=== PATIENT | female | born 1945 | race Caucasian/White ===

== ENCOUNTER → 2016-11-19 | Outpatient (REF) | payer MEDICARE, BC ==
[~2016-11-19] MED LIST: ALBU17IN INH; ATOR1TAB21 PO; CHIL1CHW5 PO; CLOP75TA2 PO; HYDR200T3 PO; IBUP80TA PO; NICO21PAT TD; QUIN200T PO
[2016-11-19 11:16] LABS: ALBUMIN 3.6 GM/DL (3.2-5.2); ALBUMIN/GLOBULIN RATIO 1.03 (1.00-1.93); ALKALINE PHOSPHATASE 105 U/L (45-117); ALT/SGPT 17 U/L (12-78); ANION GAP 6 MEQ/L (8-16); AST/SGOT 20 U/L (15-37); BILIRUBIN,TOTAL 0.3 MG/DL (0.2-1.0); BLOOD UREA NITROGEN 16 MG/DL (7-18); CARBON DIOXIDE LEVEL 31 MEQ/L (21-32); CHLORIDE LEVEL 105 MEQ/L (98-107); CHOLESTEROL LEVEL 264 MG/DL (<200); CREATININE FOR GFR 0.62 MG/DL (0.55-1.02); GLOMERULAR FILTRATION RATE > 60.0 (>45); GLUCOSE, FASTING 96 MG/DL (80-110); POTASSIUM SERUM 4.4 MEQ/L (3.5-5.1); SODIUM LEVEL 142 MEQ/L (136-145); TOTAL PROTEIN 7.1 GM/DL (6.4-8.2); TRIGLYCERIDES LEVEL 190 MG/DL (<150)
== END ==
LOC: M SFHCCLAY 08:07
PROVIDERS: ATTEND Internal Medicine
DX: E78.00 Pure hypercholesterolemia, unspecified (principal)

== ENCOUNTER → 2016-12-14 | Outpatient (CLI) | payer MEDICARE, BC ==
--- NOTE | 2016-12-14 13:24 | REPMRS ---
Patient History The patient states she has not had a clinical breast exam in over a year. Patient is postmenopausal. Family history of prostate cancer in paternal grandfather at age 50 or over. Digital Woman Screen Mammo: December 14, 2016 - Exam #: [id number] Bilateral CC and MLO view(s) were taken. Technologist: Amanda Evans Technologist FINDINGS: There are scattered fibroglandular densities. There has been no change in the appearance of the mammogram from the prior studies. There is a mild amount of residual fibroglandular tissue which is fairly symmetric. There is no interval development of dominant mass, architectural distortion, or clustered microcalcification suggestive of malignancy. ASSESSMENT: BI-RADS/ACR category 1 mammogram. Negative. Recommendation Routine screening mammogram in 1 year (for women over age 40). This mammogram was interpreted with the aid of an FDA-approved computer-aided dectection system. Electronically Signed By: Kenneth Bridges MD 12/14/16 1860
--- NOTE | 2016-12-16 14:00 | DEXA ---
AP SPINE L1 - L4 1.625 3.5 5.0 LT FEMUR TOTAL 0.927 -0.6 0.7 RT FEMUR TOTAL 0.917 -0.7 0.6 TOTAL BODY TOTAL OTHER DUAL FEMUR FRAX* ASSESSMENT Risk factors: Rheumatoid arthritis, tobacco user. 10 year probability of fracture Major osteoporotic fracture 12.1 % Hip fracture 2.6 % COMMENTS: Normal bone densitometry of the spine. There is low bone density of the hips. The density of the spine has increased 8.1% since 03/24/2006. The density of the left hip has decreased 10.2% since 03/24/2006. The density of the right hip has decreased 10.2% since 03/24/2006. The increased density of the spine does represent a significant change. The decreased density of the left hip does represent a significant change. The decreased density of the right hip does represent a significant change. FOLLOW-UP: Recommendation for the next bone density exam: 2 years. FIDELINA
== END ==
LOC: M WHC 11:02
PROVIDERS: ATTEND Internal Medicine
DX: Z12.31 Encounter for screening mammogram for malignant neoplasm of breast (principal); M06.9 Rheumatoid arthritis, unspecified; Z78.0 Asymptomatic menopausal state
CPT/HCPCS: 77080; G0202

== ENCOUNTER 2017-01-18 11:02 | Observation (INO) | payer MEDICARE, BC ==
[~2017-01-18] VITALS: Ht 152.4 cm; Wt 67.9 kg
[~2017-01-18 11:02] MED LIST changes: +ATORVASTATIN 20 MG TAB PO SCH; -CHIL1CHW5 PO; +CHIL81CH2 PO
[2017-01-18] MEDS ORDERED: NS 1,000 ML IV SCH (11:24)
[2017-01-18 11:34] LABS: BASO % 0.6 % (0.0-1.0); EOS # 0.1 K/mm3 (0.0-0.50); EOS % 0.9 % (0.0-3.0); LARGE UNSTAINED CELL # 0.1 K/mm3 (0.0-0.4); LARGE UNSTAINED CELL % 1.5 % (0.0-4.0); LYMPH # 1.8 K/mm3 (1.5-4.5); LYMPH % 22.5 % (24.0-44.0); MEAN CORPUSCULAR HEMOGLOBIN 34.9 pg (27.0-33.0); MEAN CORPUSCULAR HGB CONC 32.8 g/dl (32.0-36.5); MEAN CORPUSCULAR VOLUME 106.6 fl (80.0-96.0); MONO # 0.5 K/mm3 (0.0-0.8); MONO % 6.2 % (0.0-5.0); NEUTROPHILS % 68.3 % (36.0-66.0); PLATELET COUNT, AUTOMATED 275 k/mm3 (150-450); RED CELL DISTRIBUTION WIDTH 14.5 % (11.5-14.5); WHITE BLOOD COUNT 7.4 K/mm3 (4.0-10.0)
--- NOTE | 2017-01-18 11:52 | REP ---
Clinical: Cerebrovascular accident . Comparison: 08/15/2015 . Technique: PA and lateral. Findings: The mediastinum and cardiac silhouette are normal. The lung gruber are clear and without acute consolidation, effusion, or pneumothorax. The skeletal structures are intact and normal. Impression: 1. No acute cardiopulmonary process. Signed by King Blood MD 01/18/2017 11:44 A
--- NOTE | 2017-01-18 11:54 | REP ---
Clinical: Cerebrovascular accident. Comparison: 08/15/2015 . Findings: Age-related atrophy and microvascular ischemic changes are appreciated. The ventricles and sulci are symmetric. Encephalomalacia consistent with old left posterior parietal infarct is unchanged. Bridges-white differentiation is otherwise maintained. There is no evidence for acute intracranial hemorrhage, mass/mass effect, pathology or infarction. No extra-axial fluid collection. Calvarium is intact. Paranasal sinuses and mastoid air cells are clear. Impression: Age related atrophy and microvascular ischemic changes. Old left posterior parietal infarct. No acute intracranial hemorrhage, infarction, or mass/mass effect. Signed by King Blood MD 01/18/2017 11:46 A
[2017-01-18 12:12] LABS: INR 0.95
[2017-01-18] MEDS ORDERED: METH2.5TA PO (12:14)
[2017-01-18] MEDS ORDERED: ASPI1TAB PO (12:14)
[2017-01-18] MEDS ORDERED: ALBU17IN INH (12:14)
[2017-01-18 12:17] LABS: ANION GAP 7 MEQ/L (8-16); BLOOD UREA NITROGEN 17 MG/DL (7-18); CARBON DIOXIDE LEVEL 29 MEQ/L (21-32); CHLORIDE LEVEL 105 MEQ/L (98-107); CREATININE FOR GFR 0.75 MG/DL (0.55-1.02); GLOMERULAR FILTRATION RATE > 60.0 (>45); GLUCOSE, FASTING 119 MG/DL (80-110); POTASSIUM SERUM 3.9 MEQ/L (3.5-5.1); SODIUM LEVEL 141 MEQ/L (136-145)
[2017-01-18] MEDS ORDERED: ACETAMINOPHEN TAB 650MG DOSE (2X325MG) PO ONE (12:45)
--- NOTE | 2017-01-18 13:50 | REP ---
Clinical: Transient ischemic attack. Visual disturbances. Technique: Standard noncontrast MRI sequencing of the brain. Comparison: 08/06/2015. Findings: Punctate scattered high signal intensity foci on T2-weighted sequences along with periventricular high signal intensity is most compatible with microvascular ischemic changes. Area of encephalomalacia involving the left parieto-occipital lobe is compatible with old infarction and remains stable. No acute intracranial hemorrhage, mass or mass effect appreciated. No evidence for acute infarction. No extra-axial collection. Sinuses are clear. Orbits are symmetric and normal. Impression: 1. Chronic changes including microvascular ischemic changes and old left parieto-occipital infarction. 2. No acute intracranial process identified. Signed by King Blood MD 01/18/2017 01:41 P
--- NOTE | 2017-01-18 14:19 | REP ---
Clinical: Transient ischemic attack - visual disturbances. Comparison: 06/07/2015. Technique: Axial 3-D [id number] noncontrast source images with 3-D multiplanar re-formations. Findings: Vasculature to the bilateral hemispheres appears symmetric and normal without areas of attenuation to suggest occlusion or stenosis. No evidence for arteriovenous malformation or aneurysm. No obvious abnormality. Impression: Normal MRA of the brain. Signed by King Blood MD 01/18/2017 02:11 P
[2017-01-18] MEDS ORDERED: ACETAMINOPHEN TAB 650MG DOSE (2X325MG) PO PRN (14:45)
[2017-01-18] MEDS ORDERED: ALBUTEROL 90 MCG/ACT 8GM HFA INHALER INH PRN (14:45)
[2017-01-18] MEDS ORDERED: ONDANSETRON 4MG/2ML VIAL (J2405) IV PRN (14:45)
--- NOTE | 2017-01-18 14:53 | ECGEPIP ---
Stationary ECG Study [facility] - ED Test Date: 2017-01-18 Pat Name: ANDREZ MELCHOR Department: Room: - Gender: F Arc[place] Technician: JT : 1945 Requested By: Katerina Hung Order Number: [id number] Reading MD: Juarez Mohr Measurements Intervals [place] Rate: 66 P: 71 DE: 140 QRS: 8 QRSD: 89 T: 30 QT: 402 QTc: 423 Interpretive Statements SINUS RHYTHM WITH SINUS ARRHYTHMIA POSSIBLE LAE Electronically Signed On 01-18-2017 14:53:28 EDT by Juarez Mohr
[2017-01-18 14:55] LABS: CHOLESTEROL LEVEL 222 MG/DL (<200); TRIGLYCERIDES LEVEL 150 MG/DL (<150)
--- NOTE | 2017-01-18 15:37 | REP ---
Clinical: Transient ischemic attack. Technique: Bridges scale and color Doppler evaluation using linear high frequency transducer Findings: Two-dimensional bridges scale and color images demonstrate smooth intimal thickening and small amounts of mixed atheromatous plaquing in the carotid bulbs and proximal internal carotid arteries. Normal laminar flow and no appreciable narrowing noted. Color Doppler interrogation demonstrates normal arterial wave patterns and velocities with no significant spectral broadening. Normal flow direction is appreciated in the bilateral vertebral arteries. RIGHT (cm/s) LEFT (cm/s) ICA peak systolic velocity 83.6 94.7 ICA diastolic velocity 30.2 41.7 ECA peak systolic velocity 80.4 114.4 CCA peak systolic velocity 77.2 90.0 ICA/CCA ratio 1.08 1.05 Impression: No hemodynamically significant areas of narrowing or stenosis appreciated. Based on set standards narrowing falls within the normal/less than 50% range. Signed by King Blood MD 01/18/2017 03:29 P
[2017-01-18] MEDS ORDERED: NICOTINE 7 MG/24 HR TRANSDERMAL TD PRN (17:15)
[2017-01-18 17:53] VITALS: BP 151/66
[2017-01-18] MEDS: ASPIRIN 325 MG TAB PO SCH (18:10)
[2017-01-18] MEDS: ENOXAPARIN 40 MG/0.4 ML SYRINGE (J1650) SC SCH (18:11)
[2017-01-18 20:03] VITALS: BP 96/60
[2017-01-18] MEDS ORDERED: SIMVASTATIN 10 MG TAB PO SCH (21:00)
[2017-01-19 00:07] VITALS: BP 107/53
[2017-01-19 04:12] LABS: BASO % 0.6 % (0.0-1.0); EOS # 0.1 K/mm3 (0.0-0.50); EOS % 2.8 % (0.0-3.0); LARGE UNSTAINED CELL # 0.1 K/mm3 (0.0-0.4); LARGE UNSTAINED CELL % 2.7 % (0.0-4.0); LYMPH % 35.2 % (24.0-44.0); MEAN CORPUSCULAR HEMOGLOBIN 35.8 pg (27.0-33.0); MEAN CORPUSCULAR HGB CONC 33.8 g/dl (32.0-36.5); MEAN CORPUSCULAR VOLUME 105.9 fl (80.0-96.0); MONO # 0.4 K/mm3 (0.0-0.8); MONO % 7.2 % (0.0-5.0); NEUTROPHILS # 2.7 K/mm3 (1.8-7.7); NEUTROPHILS % 51.5 % (36.0-66.0); PLATELET COUNT, AUTOMATED 244 k/mm3 (150-450); RED CELL DISTRIBUTION WIDTH 14.6 % (11.5-14.5); WHITE BLOOD COUNT 5.2 K/mm3 (4.0-10.0)
[2017-01-19 04:13] VITALS: BP 110/53
[2017-01-19 04:33] LABS: ALBUMIN 2.9 GM/DL (3.2-5.2); ALBUMIN/GLOBULIN RATIO 0.97 (1.00-1.93); ALKALINE PHOSPHATASE 102 U/L (45-117); ALT/SGPT 17 U/L (12-78); ANION GAP 3 MEQ/L (8-16); AST/SGOT 13 U/L (15-37); BILIRUBIN,TOTAL 0.2 MG/DL (0.2-1.0); BLOOD UREA NITROGEN 15 MG/DL (7-18); CALCIUM LEVEL 8.2 MG/DL (8.8-10.2); CARBON DIOXIDE LEVEL 30 MEQ/L (21-32); CHLORIDE LEVEL 109 MEQ/L (98-107); CREATININE FOR GFR 0.67 MG/DL (0.55-1.02); GLOMERULAR FILTRATION RATE > 60.0 (>45); GLUCOSE, FASTING 101 MG/DL (80-110); MAGNESIUM LEVEL 2.1 MG/DL (1.8-2.4); POTASSIUM SERUM 4.1 MEQ/L (3.5-5.1); SODIUM LEVEL 142 MEQ/L (136-145); TOTAL PROTEIN 5.9 GM/DL (6.4-8.2)
[2017-01-19 08:00] VITALS: BP 130/62
[2017-01-19] MEDS: ASPIRIN 325 MG TAB PO SCH (08:09)
[2017-01-19] MEDS: ENOXAPARIN 40 MG/0.4 ML SYRINGE (J1650) SC SCH (08:10)
--- NOTE | 2017-01-19 08:58 | HPE ---
DATE OF ADMISSION: 01/18/2017 PRIMARY CARE PHYSICIAN: Dr. Schneider CANDY CUTTER MACHINE: Dr. King from [facility] NEUROLOGIST: Dr. Javed CHIEF COMPLAINT: Incoordination and difficulty with vision on the left eye. HISTORY OF PRESENT ILLNESS: Ms. Farah is a 71-year-old female with multiple past medical history who presented to emergency room (ER) due to experiencing inability with coordination as well as lightheadedness, dizziness, and left eye vision changes this morning. Patient expressed that she woke up at 4 o'clock. She had breakfast around 7, and she had methotrexate with her breakfast, which she is taking weekly. This is her 7th week since the therapy has been started for rheumatoid arthritis. Patient expressed that 1 hour after breakfast she started noticing a halo of bright light in the center of her vision. She could not see, and she had blurry vision in the middle of the halo; however, she could see from surrounding area. She also had normal vision on the right eye. Patient also expressed that she felt mild headache on the left temporal and anterior frontal area of her head. She also felt lightheaded and dizzy. Patient expressed that the vision abnormality stayed for a total of 10 minutes, and her dizziness as well as off balance stayed for 1 hour. Patient has history of left occipital and parietal acute ischemic stroke, which happened in May 2015, with the residual vision loss. Patient expressed that the symptoms that she was experiencing were close to her symptoms that she was experiencing 2 years ago; therefore, patient came to the ER. Also, she was advised by Dr. Javed to come to the ER if she started noticing similar symptoms. At the time of interview, patient expressed that she believes that she is at her baseline; however, she feels mildly off balance at present; however, she has not been ambulated since coming to the hospital. Patient denies seizure-type activities or losing consciousness. Patient also denies losing bowel or bladder control, dysarthria. Patient had mild problem with swallowing; however, patient expressed that at this time she does not feel like is having problem with swallowing. Also, patient is a current smoker, and she has been smoking for 50+ years. According to her, patient also had carotid endarterectomy on the left side due to 90% occlusion. Patient also has occlusions on the right carotid artery; however, it is less than 50%. The carotid endarterectomy was done in [place]. PAST MEDICAL HISTORY: 1. 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 2. Stress and adjustment reaction. 3. CVA due to thrombosis of the cerebral artery. PAST SURGICAL HISTORY: 1. section 09/29/1966. 2. Cervical biopsy, 1969. 3. section 03/06/1970. 4. Cystoscopy, 1970. 5. Urethral stricture repair. 6. Colonoscopy August 2007. 7. Left carotid endarterectomy, 08/19/2015. FAMILY HISTORY: Patient's father at age 49 due to pulmonary embolism (PE). Patient's mother due to dementia at old age. Patient's sister has multiple medical issues. Patient has two brothers who are living. Both have hypertension and diabetes. Patient has two sons. One of his sons had cardiac bypass surgery. Other son has progressive neurological disease from of unknown etiology, and he is institutionalized. SOCIAL HISTORY: Patient has a history of 50 years of two packs or more smoking per day; however, since 2 years ago she has cut down on her smoking to about half a pack a day. Patient expressed drinks alcohol occasionally. Patient denies illicit drug use. Patient has not traveled outside of the [place]. Patient lives alone and has four cats. HOME MEDICATIONS: - Ventolin HFA two puff inhaler every 4 hours as needed shortness of breath - aspirin 81 - methotrexate 17.5 mg by mouth every week on Tuesdays ALLERGIES: MEPERIDINE, OXACILLIN, SULFA ANTIBIOTICS. REVIEW OF SYSTEMS: GENERAL: Patient denies fevers, chills, night sweats, weight loss, weight gain. HEENT: Patient has lightheadedness, vision changes; however, patient denies hearing changes. Patient has lightheadedness and dizziness. Patient denies problem with chewing food or sinusitis. NECK: Patient denies lumps, bumps, or decreased range of motion of her neck. HEART: Patient denies palpitations, racing or skipping heartbeat, chest pain. LUNGS: Patient denies shortness of breath, coughing. NEUROLOGIC: Patient has a history of CVA; however, patient denies history of seizure. PHYSICAL EXAMINATION: VITAL SIGNS: Temperature 97.7, pulse 78, respiratory rate 18, blood pressure 169/72, pulse oximetry 97 on room air. GENERAL APPEARANCE: Patient was lying in bed in no acute distress. Patient was awake, alert, and oriented to time, place, and person. HEENT: Normocephalic, atraumatic. Pupils are equal and reactive to light. Oral mucosa is moist. NECK: Soft, supple. No lymphadenopathy. No thyromegaly. No jugular venous distention (JVD). HEART: Regular rate and rhythm. Normal S1, S2. ABDOMEN: Soft, nontender. Positive bowel sounds in all quadrants. LUNGS: Patient has scattered rhonchi at the base of the lung. Good air movement. EXTREMITIES: No lower extremity edema. +2 pulses in both lower extremities. Patient has normal range of motion, both upper and lower extremities. Patient has normal sensation in both lower extremities. NEUROLOGIC: Cranial nerves II-XII were intact. No focal deficiencies. Tongue and uvula are midline. Patient has normal vision field in both left and right. LABORATORY DATA: White blood cells 7.4, red blood cells 4.33, hemoglobin 15.1, hematocrit 46.1, MCV 106.6, MCH 34.9, MCHC 32.8, RDW 14.5, platelet count 275, neutrophil percentage 68.3, lymphocyte percentage 22.5, monocyte percentage 6.2, eosinophil percentage 0.9, basophil percentage 0.6, leukocyte percentage 1.5. Sodium 141, potassium 3.9, chloride 105, carbon dioxide 29, anion gap 7, BUN 17, creatinine 0.75, glomerular filtration rate more than 60, fasting glucose 119, calcium 9. Total creatine kinase 101, CK-MB 2.3, CK-MB relative index 2.27. Troponin I less than 0.02. Triglyceride 150, total cholesterol 222, LDL cholesterol 152, non-LDL 182, total HDL 40, cholesterol/HDL ratio 5.50. IMAGING TECHNIQUE: CT of the head shows age-related atrophy and microvascular ischemic changes, old left posterior parietal infarct. No acute intracranial hemorrhage, infarct, mass , or mass effect. Chest x-ray shows no acute cardiopulmonary process. MRA of the brain without contrast indicated normal. MRI of the brain without contrast shows chronic changes, including microvascular ischemic changes and the left old parietal occipital infarct. No acute intracranial process identified. ASSESSMENT AND PLAN: 1. Incoordination with difficulty with vision on the left side. This is possibly secondary to transient ischemic attacks (TIA) versus ocular migraine and migraine with visual aura. MRI, MRA, and CT of the head were negative for new pathology. I have ordered carotid ultrasound. Result is pending at this time; however, according to the patient she had carotid endarterectomy on the left due to 90% occlusion; however, the right carotid is less than 50%, and this was done in [place], and patient had the carotid ultrasound done at the vascular surgeon's office; however, I do not have a copy of the result. At this time, I have spoken with Dr. Javed, and I have started patient on aspirin 325 mg by mouth daily. Also, we have started patient on Lipitor. Patient refusing high-intensity statin; however, patient agreed to be started on Lipitor 40 mg by mouth daily. Also we will continue patient with neurologic checks every 4 hours. Patient will be admitted to the progressive care unit (PCU). EKG did not show any atrial fibrillation; however, we have ordered echocardiogram. Result is pending at this time. Also, the first of the cardiac markers were negative. We will repeat the cardiac markers for two more sets, and the result is pending. Also, I have ordered a lipid panel, and the result is pending at this time. 2. Hyperlipidemia. We have started patient on statin. Also, we will continue patient on low-fat, low-cholesterol diet. 3. Rheumatoid arthritis. Patient is on methotrexate, which she received 17.5 mg by mouth weekly on Tuesdays. Patient received her dose today before coming to the hospital. The next dose is due next week on Tuesday. At this time patient's symptoms are under control. 4. History of cerebrovascular accident (CVA). This is a chronic issue. 5. Tobacco abuse. Patient is an active smoker. I have spoken with the patient regarding quitting smoking. 6. Deep vein thrombosis (DVT) prophylaxis. Patient is on Lovenox 40 mg subcutaneous daily. My preceptor for this patient encounter was Dr. Lucinda Singleton. The preceptor was physically present in the building during the encounter and was fully available as needed. All aspects of the patient interview, examination, medical decision making process, and medical care plan development were reviewed and approved by the preceptor. The preceptor is aware and concurs with the plan as stated in the body of this note and will attest to such by his/her co-signature. I have seen and examined the patient, and discussed the case with the resident. I agree with the following assessment mentioned above. FIDELINA
[2017-01-19] MEDS ORDERED: ASPIRIN 325 MG TAB PO SCH (09:00)
[2017-01-19 11:30] VITALS: BP 112/61
[2017-01-19] MEDS ORDERED: ASPI325T PO (11:38)
[2017-01-19] MEDS ORDERED: SIMV10TA2 PO (11:38)
--- NOTE | 2017-01-20 04:57 | DSES ---
DATE OF ADMISSION: 01/18/2017 DATE OF DISCHARGE: 01/19/2017 PRIMARY CARE PHYSICIAN: Dr. Schneider CURRENCY MACHINE OPERATOR: Dr. King from [facility]. NEUROLOGIST: Dr. Javed CONSULTANTS: Dr. Javed PROCEDURES: None. DISCHARGE MEDICATION LIST: - aspirin 325 mg by mouth daily - simvastatin 10 mg by mouth nightly - albuterol two puffs inhaled every 4 hours as needed shortness of breath - methotrexate 17.5 mg by mouth weekly on Tuesdays PRIMARY DIAGNOSIS: Complicated migraine, less likely transient ischemic attack (TIA). SECONDARY DIAGNOSES: 1. Hyperlipidemia. 2. Rheumatoid arthritis. 3. History of CVA. 4. Tobacco abuse. HOSPITAL COURSE: Ms. Farah is a 71-year-old female with multiple past medical history who presented to the emergency room (ER) due to incoordination and difficulty with vision of left eye. Patient expressed that the vision abnormality stayed for a total of 10 minutes and her dizziness as well as off-balance stayed for 1 hour; however, after that, patient came back to her baseline. Patient was following recommendation to come to the ER when she developed these symptoms. At the time of presentation, patient had the head CT which shows age-related atrophy and microvascular ischemic changes as well as old left posterior parietal infarct; however, no acute intracranial hemorrhage, infarction, or mass or mass effect was noticed. Also, we have ordered a chest x-ray, which was negative for new pathology. We have ordered MRA of the brain without contrast, which was normal. Also, we have ordered MRI of the brain without contrast, which shows chronic changes including microvascular ischemic changes and old left parieto-occipital infarct; however, no acute intracranial process was identified. Patient expressed that she had a history of carotid occlusion of 90% on the left and patient had the arterectomy which was done in [place] on the left, and the right had less than 50% occlusion. I have ordered a carotid ultrasound, which indicated no hematologically significant area of narrowing or stenosis appreciated; and based on the set standards, narrowing falls within the less than 50% range. I have started patient on aspirin; however, patient refused high-intensity statin. Therefore, I have started patient on Lipitor 40 mg; however, it was changed by neurology to Zocor 10 mg nightly by mouth. Patient was asymptomatic throughout the night, and neurological check did not show any new finding. Based on recommendation from neurology, patient was discharged; and at time of discharge, patient was medically optimized. DISCHARGE PLACEMENT: Home. FOLLOWUP: Please followup with Dr. Javed and your primary care provider (PCP), Dr. Schneider, within 1 week. ACTIVITY: Activity as tolerated by patient. My preceptor for this patient encounter was Dr. Pauly Kc. The preceptor was physically present in the building during the encounter and was fully available. As needed, all aspects of the patient interview, examination, medical decision making process, and medical care plan development were reviewed and approved by the preceptor. The preceptor is aware and concurs with the plan as stated in the body of this note and will attest to such by his/her cosignature. FIDELINA
== END 2017-01-19 14:10 | disposition home or self-care (01) ==
LOC: M ED 11:02 → INTOOBSV 16:07 → M ED INP 16:07 → M PCU 17:43
PROVIDERS: ADMIT Internal Medicine; ATTEND Internal Medicine
DX: G43.809 Other migraine, not intractable, without status migrainosus (principal); G45.9 Transient cerebral ischemic attack, unspecified; E78.4 Other hyperlipidemia; Z86.73 Personal history of transient ischemic attack (TIA), and cerebral infarction without residual deficits; F17.210 Nicotine dependence, cigarettes, uncomplicated; Z88.2 Allergy status to sulfonamides; Z79.899 Other long term (current) drug therapy
CPT/HCPCS: 36415; 70450; 70544; 70551; 71010; 80048; 80053; 80061; 81001; 82550; 82553; 83735; 84443; 84484; 85025; 85610; 85730; 86850; 86900; 86901; 93005; 93041; 93880; 94760; 96360; 96361; 96372; 97161; 99285; G0378; G8978; G8979; G8980; J1650

== ENCOUNTER → 2017-05-31 | Outpatient (REF) | payer MEDICARE, BC ==
[~2017-05-31] MED LIST changes: +ASPI1TAB PO; +ASPI325T PO; -ATORVASTATIN 20 MG TAB PO SCH; +METH2.5TA PO; +SIMV10TA2 PO
[2017-05-31 12:36] LABS: MEAN CORPUSCULAR HEMOGLOBIN 33.7 pg (27.0-33.0); MEAN CORPUSCULAR HGB CONC 33.5 g/dl (32.0-36.5); MEAN CORPUSCULAR VOLUME 100.4 fl (80.0-96.0); PLATELET COUNT, AUTOMATED 282 10^3/uL (150-450); WHITE BLOOD COUNT 7.6 10^3/uL (4.0-10.0)
[2017-05-31 12:37] LABS: ALBUMIN 3.7 GM/DL (3.2-5.2); ALBUMIN/GLOBULIN RATIO 1.03 (1.00-1.93); ALKALINE PHOSPHATASE 113 U/L (45-117); ALT/SGPT 20 U/L (12-78); ANION GAP 7 MEQ/L (8-16); AST/SGOT 13 U/L (7-37); BILIRUBIN,TOTAL 0.3 MG/DL (0.2-1.0); BLOOD UREA NITROGEN 21 MG/DL (7-18); CALCIUM LEVEL 8.9 MG/DL (8.8-10.2); CARBON DIOXIDE LEVEL 28 MEQ/L (21-32); CHLORIDE LEVEL 104 MEQ/L (98-107); CHOLESTEROL LEVEL 249 MG/DL (<200); CREATININE FOR GFR 0.67 MG/DL (0.55-1.02); GLOMERULAR FILTRATION RATE > 60.0 (>45); GLUCOSE, FASTING 92 MG/DL (80-110); POTASSIUM SERUM 4.5 MEQ/L (3.5-5.1); SODIUM LEVEL 139 MEQ/L (136-145); TOTAL PROTEIN 7.3 GM/DL (6.4-8.2); TRIGLYCERIDES LEVEL 109 MG/DL (<150)
== END ==
LOC: M SFHCCLAY 08:05
PROVIDERS: ATTEND Internal Medicine
DX: E78.00 Pure hypercholesterolemia, unspecified (principal); M06.9 Rheumatoid arthritis, unspecified; R73.01 Impaired fasting glucose

== ENCOUNTER → 2017-12-15 | Outpatient (REF) | payer MEDICARE, BC ==
[2017-12-15 12:37] LABS: HEMOGLOBIN 15.2 g/dl (12.0-15.5); MEAN CORPUSCULAR HEMOGLOBIN 34.5 pg (27.0-33.0); MEAN CORPUSCULAR HGB CONC 34.5 g/dl (32.0-36.5); PLATELET COUNT, AUTOMATED 296 10^3/uL (150-450); WHITE BLOOD COUNT 7.6 10^3/uL (4.0-10.0)
[2017-12-15 12:53] LABS: ALBUMIN 3.8 GM/DL (3.2-5.2); ALBUMIN/GLOBULIN RATIO 1.19 (1.00-1.93); ALKALINE PHOSPHATASE 97 U/L (45-117); ALT/SGPT 20 U/L (12-78); ANION GAP 6 MEQ/L (8-16); AST/SGOT 16 U/L (7-37); BILIRUBIN,TOTAL 0.4 MG/DL (0.2-1.0); BLOOD UREA NITROGEN 16 MG/DL (7-18); C REACTIVE PROTEIN QUANTITATIV < 0.30 MG/DL (0.00-0.30); CALCIUM LEVEL 8.7 MG/DL (8.8-10.2); CARBON DIOXIDE LEVEL 28 MEQ/L (21-32); CHLORIDE LEVEL 105 MEQ/L (98-107); CHOLESTEROL LEVEL 240 MG/DL (<200); CHOLESTEROL RISK RATIO 5.454 (<5); CREATININE FOR GFR 0.79 MG/DL (0.55-1.30); GLOMERULAR FILTRATION RATE > 60.0 (>39); GLUCOSE, FASTING 109 MG/DL (70-100); HDL CHOLESTEROL 44 MG/DL (>40); LDL CHOLESTEROL 165.2 MG/DL (<100); NON-HDL-C 196 MG/DL; POTASSIUM SERUM 4.4 MEQ/L (3.5-5.1); SODIUM LEVEL 139 MEQ/L (136-145); TRIGLYCERIDES LEVEL 154 MG/DL (<150)
[2017-12-15 12:58] LABS: ESTIMATED AVERAGE GLUCOSE 114 MG/DL (60-110); HEMOGLOBIN A1c 5.6 %
[2017-12-15 13:48] LABS: ERYTHROCYTE SEDIMENTATION RATE 25 mm/hr (0-30)
== END ==
LOC: M SFHCCLAY 08:13
DX: M06.9 Rheumatoid arthritis, unspecified (principal); E78.00 Pure hypercholesterolemia, unspecified; R73.01 Impaired fasting glucose
CPT/HCPCS: 80053

== ENCOUNTER → 2018-01-10 | Outpatient (CLI) | payer MEDICARE, BC | LOC: M RAD 09:13 | DX: F17.210 Nicotine dependence, cigarettes, uncomplicated (principal); I69.30 Unspecified sequelae of cerebral infarction; Z12.2 Encounter for screening for malignant neoplasm of respiratory organs; Z86.73 Personal history of transient ischemic attack (TIA), and cerebral infarction without residual deficits | CPT/HCPCS: 93880 ==

== ENCOUNTER → 2018-06-20 | Outpatient (REF) | payer MEDICARE, BC ==
[2018-06-20 12:05] LABS: ALBUMIN 3.7 GM/DL (3.2-5.2); ALBUMIN/GLOBULIN RATIO 1.06 (1.00-1.93); ALKALINE PHOSPHATASE 107 U/L (45-117); ALT/SGPT 18 U/L (12-78); ANION GAP 8 MEQ/L (8-16); AST/SGOT 16 U/L (7-37); BILIRUBIN,TOTAL 0.4 MG/DL (0.2-1.0); BLOOD UREA NITROGEN 17 MG/DL (7-18); C REACTIVE PROTEIN QUANTITATIV 0.96 MG/DL (0.00-0.30); CALCIUM LEVEL 8.9 MG/DL (8.8-10.2); CARBON DIOXIDE LEVEL 28 MEQ/L (21-32); CHLORIDE LEVEL 103 MEQ/L (98-107); CHOLESTEROL LEVEL 232 MG/DL (<200); CHOLESTEROL RISK RATIO 4.734 (<5); CREATININE FOR GFR 0.76 MG/DL (0.55-1.30); GLOMERULAR FILTRATION RATE > 60.0 (>39); GLUCOSE, FASTING 110 MG/DL (70-100); HDL CHOLESTEROL 49 MG/DL (>40); LDL CHOLESTEROL 156 MG/DL (<100); NON-HDL-C 183 MG/DL; POTASSIUM SERUM 4.3 MEQ/L (3.5-5.1); SODIUM LEVEL 139 MEQ/L (136-145); TOTAL PROTEIN 7.2 GM/DL (6.4-8.2); TRIGLYCERIDES LEVEL 133 MG/DL (<150)
[2018-06-20 12:24] LABS: ERYTHROCYTE SEDIMENTATION RATE 1 mm/hr (0-30)
== END ==
LOC: M SFHCCLAY 08:26
DX: R73.01 Impaired fasting glucose (principal); E78.00 Pure hypercholesterolemia, unspecified; M06.9 Rheumatoid arthritis, unspecified
CPT/HCPCS: 80053

== ENCOUNTER → 2018-06-23 | Outpatient (REF) | payer MEDICARE, BC ==
[~2018-06-23] MED LIST changes: +METH2.5T48 PO; -METH2.5TA PO
[2018-06-23 16:08] LABS: APPEARANCE, URINE CLEAR (CLEAR); BACTERIA, URINE AUTO NEGATIVE (NEGATIVE); BILIRUBIN, URINE AUTO NEGATIVE (NEGATIVE); BLOOD, URINE BLOOD NEGATIVE (NEGATIVE); COLOR, URINE YELLOW (YELLOW); GLUCOSE, URINE (UA) AUTO NEGATIVE (NEGATIVE); KETONE, URINE AUTO TRACE mg/dL (NEGATIVE); LEUKOCYTE ESTERASE, URINE AUTO TRACE (NEGATIVE); MUCUS, URINE SMALL (NEGATIVE); NITRITE, URINE AUTO NEGATIVE (NEGATIVE); PROTEIN, URINE AUTO NEGATIVE (NEGATIVE); RBC, URINE AUTO 2 /HPF (0-3); SPECIFIC GRAVITY URINE AUTO 1.026 (1.002-1.035); SQUAMOUS EPITHELIAL CELL UR AU 0 /HPF (0-6); WBC, URINE AUTO 5 /HPF (0-3)
== END ==
LOC: M SFHCPLAZ 14:35
PROVIDERS: ATTEND Internal Medicine
DX: R30.0 Dysuria (principal)
CPT/HCPCS: 81001; 87086; G0463

== ENCOUNTER → 2019-02-22 | Outpatient (REF) | payer MEDICARE, BC ==
[~2019-02-22] MED LIST changes: +ASPI-1 PO; +ASPI-286 PO; -ASPI1TAB PO; -ASPI325T PO; +ASPI81TA26 PO; -CHIL81CH2 PO; +NICO21DI3 TD; -NICO21PAT TD
[2019-02-22 13:42] LABS: HEMATOCRIT 47.6 % (36.0-47.0); HEMOGLOBIN 16.2 g/dl (12.0-15.5); MEAN CORPUSCULAR HEMOGLOBIN 35.1 pg (27.0-33.0); PLATELET COUNT, AUTOMATED 313 10^3/uL (150-450); RED BLOOD COUNT 4.62 10^6/uL (4.00-5.40); WHITE BLOOD COUNT 6.7 10^3/uL (4.0-10.0)
[2019-02-22 14:15] LABS: ALBUMIN 3.8 GM/DL (3.2-5.2); ALT/SGPT 23 U/L (12-78); BILIRUBIN,TOTAL 0.4 MG/DL (0.2-1.0); BLOOD UREA NITROGEN 14 MG/DL (7-18); C REACTIVE PROTEIN QUANTITATIV < 0.30 MG/DL (0.00-0.30); CALCIUM LEVEL 9.2 MG/DL (8.8-10.2); CARBON DIOXIDE LEVEL 30 MEQ/L (21-32); CHLORIDE LEVEL 106 MEQ/L (98-107); CHOLESTEROL LEVEL 221 MG/DL (<200); CHOLESTEROL RISK RATIO 5.139 (<5); GLOMERULAR FILTRATION RATE > 60.0 (>39); GLUCOSE, FASTING 99 MG/DL (70-100); HDL CHOLESTEROL 43 MG/DL (>40); LDL CHOLESTEROL 145 MG/DL (<100); NON-HDL-C 178 MG/DL; POTASSIUM SERUM 4.6 MEQ/L (3.5-5.1); SODIUM LEVEL 142 MEQ/L (136-145); TOTAL PROTEIN 7.1 GM/DL (6.4-8.2); TRIGLYCERIDES LEVEL 167 MG/DL (<150)
[2019-02-22 14:22] LABS: MALB URINE SIEMENS 31.7 MG/L; MAU/CREAT RATIO 24.3 MCG/MG (0.0-30.0)
[2019-02-22 14:35] LABS: ERYTHROCYTE SEDIMENTATION RATE 14 mm/hr (0-30)
== END ==
LOC: M SFHCCLAY 08:19
PROVIDERS: ATTEND Internal Medicine
DX: M06.9 Rheumatoid arthritis, unspecified (principal); E78.00 Pure hypercholesterolemia, unspecified; R73.01 Impaired fasting glucose

== ENCOUNTER → 2019-03-06 | Outpatient (CLI) | payer MEDICARE, BC ==
--- NOTE | 2019-03-06 12:46 | REP ---
Low-dose lung screening CT of the chest: The study is performed without IV contrast. The images are presented at lung windowing only. Comparison is 01/10/2018. There are no lung masses or nodules. This is unchanged. There are no infiltrates or pleural effusions. This is unchanged. There is a chronic parenchymal scar in the medial segment of the right middle lobe, unchanged. Impression: Category one low-dose lung screening CT of the chest. The probability of malignancy is less than 1%. Depending on risk factors, annual follow-up low-dose lung screening CT is recommended. Electronically Signed by Kenneth Martines MD 03/06/2019 12:38 P
== END ==
LOC: M RAD 09:52
PROVIDERS: ATTEND Internal Medicine
DX: F17.210 Nicotine dependence, cigarettes, uncomplicated (principal); Z12.2 Encounter for screening for malignant neoplasm of respiratory organs

== ENCOUNTER → 2019-04-27 | Outpatient (REF) | payer MEDICARE, BC ==
[2019-04-27 18:09] LABS: BLOOD UREA NITROGEN 17 MG/DL (7-18); CREATININE FOR GFR 0.67 MG/DL (0.55-1.30); GLOMERULAR FILTRATION RATE > 60.0 (>39)
== END ==
LOC: M LABDRAWC 16:10
PROVIDERS: ATTEND Urology
DX: R19.5 Other fecal abnormalities (principal)

== ENCOUNTER → 2019-05-01 | Outpatient (CLI) | payer MEDICARE, BC ==
[~2019-05-01] MED LIST changes: +GASTROGRAFIN SOLUTION 30ML (Q9963) As Ordered ONE; +ISOVUE-370 76% 100ML VIAL (Q9967) As Ordered ONE
--- NOTE | 2019-05-02 07:17 | REP ---
REASON FOR EXAM: Weight loss. COMPARISON: 07/13/2007, which is the only prior. CONTRAST: 100 mL Isovue 370. The lung bases are clear. The precontrast enhanced portion of the examination hepatic and splenic densities to be within normal limits. There are no choleliths. In the right kidney, there is a 6 mm sized nonobstructing nephrolith. This represents a change from the prior exam. The contrast enhanced portion of the examination shows the liver, gallbladder, spleen, pancreas, adrenal glands and kidneys to be within normal limits with the exception of the aforementioned right nephrolith. The abdominal aorta and para-aortic regions are within normal limits for the patient's age. The bowel loops and their mesenteries are within normal limits. There is no evidence of intra-abdominal mass or adenopathy. There is no free fluid or free air. CT PELVIS: There is sigmoid colon diverticulosis. There is no evidence of a pelvic mass or adenopathy. There is no free fluid or free air. Bone window technique throughout the exam shows chronic spinal degenerative changes, which have increased slightly from the prior exam. IMPRESSION: There is no evidence of acute intra-abdominal or intrapelvic disease. A negative CT scan does not obviate further imaging of the colon with colonoscopy if a colonic abnormality is of clinical concern. There is a non obstructing right nephrolith as described above. There is a tiny suspected simple hepatic cyst. Electronically Signed by Guy Doss DO 05/02/2019 02:34 P
== END ==
LOC: M RAD 14:50
PROVIDERS: ATTEND Physician Assistant Medical
DX: R19.5 Other fecal abnormalities (principal); R10.12 Left upper quadrant pain; R63.4 Abnormal weight loss; K57.30 Diverticulosis of large intestine without perforation or abscess without bleeding; N20.0 Calculus of kidney
CPT/HCPCS: 74178; Q9963; Q9967

== ENCOUNTER 2019-05-22 10:17 | Day surgery (SDC) | payer MEDICARE, BC ==
[~2019-05-22] VITALS: Ht 149.9 cm; Wt 62.1 kg
[~2019-05-22 10:17] MED LIST changes: +ASPI81TA85 PO; +CRES10TA PO; -GASTROGRAFIN SOLUTION 30ML (Q9963) As Ordered ONE; -ISOVUE-370 76% 100ML VIAL (Q9967) As Ordered ONE; +NS 1,000 ML IV ONE
[2019-05-22] MEDS ORDERED: LIDOCAINE 2% INJ 100 MG/5 ML SDV (FOR ANES.) As Ordered ONE ×2 (12:08→13:21)
[2019-05-22] MEDS ORDERED: PROPOFOL 200 MG/20 ML VIAL As Ordered ONE ×2 (12:08→13:21)
--- NOTE | 2019-05-22 13:24 | ROOR ---
Patient Name: Tammy Farah Procedure Date: 05/22/2019 1:05 PM Date of : 1945 Age: 73 Room: [facility] Gender: Female Note Status: Finalized Procedure: Upper GI endoscopy Indications: Abdominal pain, Weight loss Providers: Jak GREENE MD Referring MD: Jori Schneider MD Requesting Provider: Medicines: Monitored Anesthesia Care Complications: No immediate complications. Procedure: Pre-Anesthesia Assessment: - The heart rate, respiratory rate, oxygen saturations, blood pressure, adequacy of pulmonary ventilation, and response to care were monitored throughout the procedure. The Endoscope was introduced through the mouth, and advanced to the second part of duodenum. The upper GI endoscopy was accomplished without difficulty. The patient tolerated the procedure well. Findings: Moderately severe esophagitis was found at the gastroesophageal junction. Biopsies were taken with a cold forceps for histology. A widely patent Schatzki ring was found at the gastroesophageal junction. Biopsies were taken with a cold forceps for histology. The entire examined stomach was normal. The examined duodenum was normal. Impression: - Mild to moderate distal esophagitis at GE hunction. Biopsied. - Widely patent Schatzki ring at GE junction. Biopsied. - Normal stomach. - Normal examined duodenum. Recommendation: - Observe patient's clinical course. - Use Prilosec (omeprazole) 40 mg PO daily for 3 months. - (the script was sent to your pharmacy on file) Jak Greene MD Jak GREENE MD 05/22/2019 1:24:10 PM Electronically signed by Jak GREENE MD Number of Addenda: 0 Note Initiated On: 05/22/2019 1:05 PM Estimated Blood Loss: Estimated blood loss: none.
[2019-05-22] MEDS ORDERED: ePHEDrine SULFATE 25 MG/5 ML(5MG/ML) SYRINGE As Ordered ONE (13:41)
--- NOTE | 2019-05-22 13:49 | ROOR ---
Patient Name: Tammy Farah Procedure Date: 05/22/2019 1:06 PM Date of : 1945 Age: 73 Room: [facility] Gender: Female Note Status: Finalized Procedure: Colonoscopy Indications: Positive Cologuard test, Weight loss Providers: Jak GREENE MD Referring MD: Jori Schneider MD Requesting Provider: Medicines: Monitored Anesthesia Care Complications: No immediate complications. Procedure: Pre-Anesthesia Assessment: - The heart rate, respiratory rate, oxygen saturations, blood pressure, adequacy of pulmonary ventilation, and response to care were monitored throughout the procedure. The Colonoscope was introduced through the anus and advanced to the terminal ileum, with identification of the appendiceal orifice and IC valve. The colonoscopy was performed without difficulty. The patient tolerated the procedure well. The quality of the bowel preparation was good. Findings: The perianal and digital rectal examinations were normal. Three sessile polyps were found in the sigmoid colon. The polyps were 4 to 6 mm in size. These polyps were removed with a cold snare. Resection and retrieval were complete. Multiple medium-mouthed diverticula were found in the sigmoid colon. Internal hemorrhoids were found during retroflexion. The hemorrhoids were medium-sized. The exam was otherwise without abnormality on direct and retroflexion views. Impression: - Three 4 to 6 mm polyps in the sigmoid colon, removed with a cold snare. Resected and retrieved. - Diverticulosis in the sigmoid colon. - Internal hemorrhoids. - The colon was otherwise normal on direct and retroflexion views. Recommendation: - Await pathology results. - Telephone endoscopist for pathology results in 2 weeks. - If the pathology report reveals adenomatous tissue, then repeat the colonoscopy for surveillance in 3 years. Jak Greene MD Jak GREENE MD 05/22/2019 1:48:40 PM Electronically signed by Jak GREENE MD Number of Addenda: 0 Note Initiated On: 05/22/2019 1:06 PM Estimated Blood Loss: Estimated blood loss: none.
[2019-05-22 14:05] VITALS: BP 126/62
== END 2019-05-22 14:22 | disposition home or self-care (01) ==
LOC: M OPP 10:17
PROVIDERS: ATTEND Internal Medicine Gastroenterology
DX: K63.5 Polyp of colon (principal); K64.8 Other hemorrhoids; K57.30 Diverticulosis of large intestine without perforation or abscess without bleeding; R19.5 Other fecal abnormalities; R63.4 Abnormal weight loss; K20.9 Esophagitis, unspecified; K22.2 Esophageal obstruction; R10.9 Unspecified abdominal pain; F17.210 Nicotine dependence, cigarettes, uncomplicated; Z79.82 Long term (current) use of aspirin; Z79.899 Other long term (current) drug therapy; Z88.2 Allergy status to sulfonamides; Z88.8 Allergy status to other drugs, medicaments and biological substances

== ENCOUNTER → 2019-08-14 | Outpatient (CLI) | payer MEDICARE, BC ==
[~2019-08-14] MED LIST changes: -NS 1,000 ML IV ONE; -SIMV10TA2 PO; +SIMV10TA21 PO
--- NOTE | 2019-08-14 14:51 | REPPI ---
And abdomen for renal calculi: Comparison is an abdomen/pelvis CT dated 05/01/1927 teen. Upon review of the comparison CT there was a 6 ml calculus lower pole right kidney and a 2 mm calculus in the lower pole right kidney. On the plain film study today there is a 1.5 mm calculus projected over the lower pole right kidney and a 4 mm calculus projected over the lower pole right kidney. No calculi are identified superimposed over the left kidney. The bowel gas pattern is normal. There is degenerative disc disease and scoliosis in the lumbar spine. Electronically Signed by Kenneth Martines MD 08/14/2019 02:43 P
== END ==
LOC: M PLAIMG 13:50
PROVIDERS: ATTEND Nurse Practitioner Women's Health
DX: N20.0 Calculus of kidney (principal); M51.36 Other intervertebral disc degeneration, lumbar region
CPT/HCPCS: 74018; G0463

== ENCOUNTER → 2019-08-29 | Outpatient (REF) | payer MEDICARE, BC ==
[2019-08-29 16:34] LABS: HEMATOCRIT 46.8 % (36.0-47.0); HEMOGLOBIN 15.2 g/dl (12.0-15.5); MEAN CORPUSCULAR HEMOGLOBIN 33.5 pg (27.0-33.0); MEAN CORPUSCULAR HGB CONC 32.5 g/dl (32.0-36.5); MEAN CORPUSCULAR VOLUME 103.1 fl (80.0-96.0); PLATELET COUNT, AUTOMATED 275 10^3/uL (150-450); RED BLOOD COUNT 4.54 10^6/uL (4.00-5.40); WHITE BLOOD COUNT 6.8 10^3/uL (4.0-10.0)
[2019-08-29 16:35] LABS: ALBUMIN 4.1 GM/DL (3.2-5.2); ALT/SGPT 22 U/L (12-78); BILIRUBIN,TOTAL 0.4 MG/DL (0.2-1.0); BLOOD UREA NITROGEN 21 MG/DL (7-18); C REACTIVE PROTEIN QUANTITATIV < 0.30 MG/DL (0.00-0.30); CALCIUM LEVEL 9.3 MG/DL (8.8-10.2); CARBON DIOXIDE LEVEL 30 MEQ/L (21-32); CHLORIDE LEVEL 103 MEQ/L (98-107); CHOLESTEROL LEVEL 146 MG/DL (<200); CHOLESTEROL RISK RATIO 2.862 (<5); CREATININE FOR GFR 0.83 MG/DL (0.55-1.30); GLOMERULAR FILTRATION RATE > 60.0 (>39); GLUCOSE, FASTING 95 MG/DL (70-100); HDL CHOLESTEROL 51 MG/DL (>40); LDL CHOLESTEROL 75 MG/DL (<100); NON-HDL-C 95 MG/DL; POTASSIUM SERUM 4.3 MEQ/L (3.5-5.1); RHEUMATOID FACTOR QUANT 21.6 IU/ML (<15.0); SODIUM LEVEL 141 MEQ/L (136-145); TOTAL PROTEIN 7.4 GM/DL (6.4-8.2); TRIGLYCERIDES LEVEL 102 MG/DL (<150)
[2019-08-29 17:01] LABS: ERYTHROCYTE SEDIMENTATION RATE 18 mm/hr (0-30)
[2019-08-29 17:02] LABS: HEMOGLOBIN A1c 5.9 %
[2019-08-29 17:05] LABS: MALB URINE SIEMENS 25.3 MG/L; MAU/CREAT RATIO 20.7 MCG/MG (0.0-30.0)
[2019-09-01 00:07] LABS: ANTINUCLEAR ANTIBODIES DIRECT Negative (Negative); CYCLIC CITRULLINATED PEPTIDE 228 units (0-19)
== END ==
LOC: M SFHCCLAY 09:30
PROVIDERS: ATTEND Internal Medicine
DX: M06.9 Rheumatoid arthritis, unspecified (principal); E78.00 Pure hypercholesterolemia, unspecified; R73.01 Impaired fasting glucose

== ENCOUNTER → 2020-02-29 | Outpatient (REF) | payer MEDICARE, BC ==
[~2020-02-29] MED LIST changes: -ASPI81TA85 PO; +ASPI81TA86 PO
[2020-04-17 20:42] LABS: HEMATOCRIT 46.7 % (36.0-47.0); MEAN CORPUSCULAR HGB CONC 34.3 g/dl (32.0-36.5); MEAN CORPUSCULAR VOLUME 102.2 fl (80.0-96.0); PLATELET COUNT, AUTOMATED 274 10^3/uL (150-450); RED BLOOD COUNT 4.57 10^6/uL (4.00-5.40); WHITE BLOOD COUNT 6.7 10^3/uL (4.0-10.0)
[2020-04-27 23:03] LABS: ALBUMIN 3.9 GM/DL (3.2-5.2); ALT/SGPT 23 U/L (12-78); BILIRUBIN,TOTAL 0.4 MG/DL (0.2-1.0); BLOOD UREA NITROGEN 13 MG/DL (7-18); CALCIUM LEVEL 9.1 MG/DL (8.8-10.2); CARBON DIOXIDE LEVEL 30 MEQ/L (21-32); CHLORIDE LEVEL 105 MEQ/L (98-107); CHOLESTEROL LEVEL 139 MG/DL (<200); CHOLESTEROL RISK RATIO 3.088 (<5); CREATININE FOR GFR 0.73 MG/DL (0.55-1.30); GLOMERULAR FILTRATION RATE > 60.0 (>39); GLUCOSE, FASTING 106 MG/DL (70-100); HDL CHOLESTEROL 45 MG/DL (>40); HEMOGLOBIN A1c 5.6 %; LDL CHOLESTEROL 70 MG/DL (<100); MALB URINE SIEMENS 17.7 MG/L; NON-HDL-C 94 MG/DL; POTASSIUM SERUM 4.2 MEQ/L (3.5-5.1); SODIUM LEVEL 141 MEQ/L (136-145); TRIGLYCERIDES LEVEL 122 MG/DL (<150)
== END ==
LOC: M LABDRAWC 08:30
PROVIDERS: ATTEND Internal Medicine
DX: E78.00 Pure hypercholesterolemia, unspecified (principal); I69.30 Unspecified sequelae of cerebral infarction; M06.9 Rheumatoid arthritis, unspecified; R73.01 Impaired fasting glucose

== ENCOUNTER → 2020-10-29 | Outpatient (CLI) | payer MEDICARE, BC ==
--- NOTE | 2020-10-29 11:57 | REP ---
INDICATION: LUNG SCREENING. COMPARISON: Multiple the latest 03/06/2019 TECHNIQUE: Axial noncontrast images from the thoracic inlet to the upper abdomen using low-dose lung screening technique (LDCT). As per the protocol only lung window images were sent to the read station for interpretation. FINDINGS: No abnormal nodules, masses, or opacities have developed. Grossly, the mediastinum and pulmonary enrike are unchanged. Grossly, the imaged upper abdomen and imaged osseous structures are unchanged. IMPRESSION: Stable lung rads category 1 negative exam. <Electronically signed by Guy Doss > 10/29/20 [id number]
== END ==
LOC: M RAD 10:33
PROVIDERS: ATTEND Internal Medicine
DX: Z12.2 Encounter for screening for malignant neoplasm of respiratory organs (principal); F17.210 Nicotine dependence, cigarettes, uncomplicated

== ENCOUNTER → 2020-11-07 | Outpatient (REF) | payer MEDICARE, BC ==
[2020-11-07 12:22] LABS: HEMOGLOBIN A1c 5.3 %
[2020-11-07 12:28] LABS: ALT/SGPT 25 U/L (12-78); BILIRUBIN,TOTAL 0.6 MG/DL (0.2-1.0); BLOOD UREA NITROGEN 24 MG/DL (7-18); CALCIUM LEVEL 9.4 MG/DL (8.8-10.2); CARBON DIOXIDE LEVEL 32 MEQ/L (21-32); CHLORIDE LEVEL 105 MEQ/L (98-107); CHOLESTEROL LEVEL 172 MG/DL (<200); CHOLESTEROL RISK RATIO 3.185 (<5); CREATININE FOR GFR 0.72 MG/DL (0.55-1.30); GLOMERULAR FILTRATION RATE > 60.0 (>39); GLUCOSE, FASTING 118 MG/DL (70-100); HDL CHOLESTEROL 54 MG/DL (>40); LDL CHOLESTEROL 93 MG/DL (<100); NON-HDL-C 118 MG/DL; POTASSIUM SERUM 4.4 MEQ/L (3.5-5.1); SODIUM LEVEL 140 MEQ/L (136-145); TOTAL PROTEIN 7.2 GM/DL (6.4-8.2); TRIGLYCERIDES LEVEL 127 MG/DL (<150)
== END ==
LOC: M SFHCCLAY 08:17
PROVIDERS: ATTEND Internal Medicine
DX: E78.00 Pure hypercholesterolemia, unspecified (principal); M06.9 Rheumatoid arthritis, unspecified; R73.01 Impaired fasting glucose; Z11.59 Encounter for screening for other viral diseases
CPT/HCPCS: 80053; 80061; 83036; 85652; 86140; G0472

== ENCOUNTER → 2021-05-08 | Outpatient (REF) | payer MEDICARE, BC ==
[2021-05-08 11:14] LABS: BASO # 0.1 10^3/uL (0.0-0.2); BASO % 0.5 % (0.0-1.0); EOS # 0.1 10^3/uL (0.0-0.5); EOS % 1.1 % (0.0-3.0); HEMOGLOBIN 15.8 g/dl (12.0-15.5); LYMPH # 2.1 10^3/uL (1.5-5.0); LYMPH % 23.1 % (24.0-44.0); MEAN CORPUSCULAR HEMOGLOBIN 34.5 pg (27.0-33.0); MEAN CORPUSCULAR HGB CONC 33.6 g/dl (32.0-36.5); MEAN CORPUSCULAR VOLUME 102.6 fl (80.0-96.0); MONO # 0.7 10^3/uL (0.0-0.8); MONO % 7.3 % (2.0-8.0); NEUTROPHILS # 6.2 10^3/uL (1.5-8.5); NEUTROPHILS % 67.6 % (36.0-66.0); PLATELET COUNT, AUTOMATED 264 10^3/uL (150-450); RED BLOOD COUNT 4.58 10^6/uL (4.00-5.40); WHITE BLOOD COUNT 9.2 10^3/uL (4.0-10.0)
[2021-05-08 11:36] LABS: HEMOGLOBIN A1c 5.2 %
[2021-05-08 11:44] LABS: ALBUMIN 3.7 GM/DL (3.2-5.2); ALT/SGPT 22 U/L (12-78); BILIRUBIN,TOTAL 0.5 MG/DL (0.2-1.0); BLOOD UREA NITROGEN 16 MG/DL (7-18); CALCIUM LEVEL 9.2 MG/DL (8.8-10.2); CARBON DIOXIDE LEVEL 30 MEQ/L (21-32); CHLORIDE LEVEL 105 MEQ/L (98-107); CHOLESTEROL LEVEL 167 MG/DL (<200); CHOLESTEROL RISK RATIO 2.737 (<5); CREATININE FOR GFR 0.72 MG/DL (0.55-1.30); GLOMERULAR FILTRATION RATE > 60.0 (>39); GLUCOSE, FASTING 104 MG/DL (70-100); HDL CHOLESTEROL 61 MG/DL (>40); LDL CHOLESTEROL 83 MG/DL (<100); NON-HDL-C 106 MG/DL; POTASSIUM SERUM 4.2 MEQ/L (3.5-5.1); SODIUM LEVEL 141 MEQ/L (136-145); TOTAL PROTEIN 6.9 GM/DL (6.4-8.2); TRIGLYCERIDES LEVEL 116 MG/DL (<150)
[2021-05-08 12:55] LABS: ERYTHROCYTE SEDIMENTATION RATE 13 mm/hr (0-30)
== END ==
LOC: M SFHCCLAY 07:50
PROVIDERS: ATTEND Internal Medicine
DX: M06.9 Rheumatoid arthritis, unspecified (principal); E78.00 Pure hypercholesterolemia, unspecified; R73.01 Impaired fasting glucose

== ENCOUNTER → 2021-11-06 | Outpatient (REF) | payer MEDICARE, BC ==
[~2021-11-06] MED LIST changes: -ASPI-286 PO; -QUIN200T PO; +SM C81CH2 PO; +[UNRECOGNIZED DRUG - CODE] PO
[2021-11-06 11:39] LABS: BASO % 0.6 % (0.0-1.0); EOS # 0.2 10^3/uL (0.0-0.5); EOS % 2.7 % (0.0-3.0); HEMATOCRIT 45.4 % (36.0-47.0); HEMOGLOBIN 15.2 g/dl (12.0-15.5); LYMPH # 2.6 10^3/uL (1.5-5.0); LYMPH % 40.8 % (24.0-44.0); MEAN CORPUSCULAR HEMOGLOBIN 34.7 pg (27.0-33.0); MEAN CORPUSCULAR HGB CONC 33.5 g/dl (32.0-36.5); MEAN CORPUSCULAR VOLUME 103.7 fl (80.0-96.0); MONO # 0.7 10^3/uL (0.0-0.8); MONO % 11.1 % (2.0-8.0); NEUTROPHILS # 2.8 10^3/uL (1.5-8.5); NEUTROPHILS % 44.3 % (36.0-66.0); PLATELET COUNT, AUTOMATED 272 10^3/uL (150-450); RED BLOOD COUNT 4.38 10^6/uL (4.00-5.40); WHITE BLOOD COUNT 6.4 10^3/uL (4.0-10.0)
[2021-11-06 11:58] LABS: ERYTHROCYTE SEDIMENTATION RATE 10 mm/hr (0-30)
[2021-11-06 12:08] LABS: ALBUMIN 3.7 GM/DL (3.2-5.2); ALT/SGPT 23 U/L (12-78); BILIRUBIN,TOTAL 0.6 MG/DL (0.2-1.0); BLOOD UREA NITROGEN 19 MG/DL (7-18); CARBON DIOXIDE LEVEL 35 MEQ/L (21-32); CHLORIDE LEVEL 105 MEQ/L (98-107); CHOLESTEROL LEVEL 159 MG/DL (<200); CREATININE FOR GFR 0.67 MG/DL (0.55-1.30); GLOMERULAR FILTRATION RATE > 60.0 (>39); GLUCOSE, FASTING 100 MG/DL (70-100); HDL CHOLESTEROL 53 MG/DL (>40); LDL CHOLESTEROL 81 MG/DL (<100); NON-HDL-C 106 MG/DL; POTASSIUM SERUM 4.2 MEQ/L (3.5-5.1); SODIUM LEVEL 141 MEQ/L (136-145); TOTAL PROTEIN 6.9 GM/DL (6.4-8.2); TRIGLYCERIDES LEVEL 123 MG/DL (<150)
[2021-11-11 12:38] LABS: TOTAL 25(OH) VITAMIN D 33.8 NG/ML (30.0-100.0)
== END ==
LOC: M SFHCCLAY 09:36
PROVIDERS: ATTEND Internal Medicine
DX: E78.00 Pure hypercholesterolemia, unspecified (principal); M06.9 Rheumatoid arthritis, unspecified; R73.01 Impaired fasting glucose; N20.0 Calculus of kidney

== ENCOUNTER → 2021-12-25 | Outpatient (CLI) | payer MEDICARE, BC | LOC: M RAD 12:53 | PROVIDERS: ATTEND Internal Medicine | DX: Z12.2 Encounter for screening for malignant neoplasm of respiratory organs (principal); F17.210 Nicotine dependence, cigarettes, uncomplicated ==

== ENCOUNTER → 2021-12-25 | Outpatient (CLI) | payer MEDICARE, BC | LOC: M WHC 11:10 | PROVIDERS: ATTEND Internal Medicine | DX: Z12.31 Encounter for screening mammogram for malignant neoplasm of breast (principal); Z80.42 Family history of malignant neoplasm of prostate; Z12.2 Encounter for screening for malignant neoplasm of respiratory organs; F17.210 Nicotine dependence, cigarettes, uncomplicated ==

== ENCOUNTER → 2022-04-23 | Outpatient (REF) | payer MEDICARE, BC ==
[2022-04-23 12:05] LABS: BASO # 0.1 10^3/uL (0.0-0.2); BASO % 1.1 % (0.0-1.0); EOS # 0.2 10^3/uL (0.0-0.5); EOS % 2.6 % (0.0-3.0); HEMATOCRIT 45.3 % (36.0-47.0); HEMOGLOBIN 15.2 g/dl (12.0-15.5); LYMPH # 2.1 10^3/uL (1.5-5.0); LYMPH % 33.8 % (24.0-44.0); MEAN CORPUSCULAR HEMOGLOBIN 34.5 pg (27.0-33.0); MEAN CORPUSCULAR HGB CONC 33.6 g/dl (32.0-36.5); MONO # 0.7 10^3/uL (0.0-0.8); MONO % 11.5 % (2.0-8.0); NEUTROPHILS # 3.1 10^3/uL (1.5-8.5); NEUTROPHILS % 50.4 % (36.0-66.0); PLATELET COUNT, AUTOMATED 257 10^3/uL (150-450); WHITE BLOOD COUNT 6.2 10^3/uL (4.0-10.0)
[2022-04-23 12:50] LABS: ALBUMIN 3.7 GM/DL (3.2-5.2); ALT/SGPT 19 U/L (12-78); BILIRUBIN,TOTAL 0.4 MG/DL (0.2-1.0); BLOOD UREA NITROGEN 21 MG/DL (7-18); CALCIUM LEVEL 9.1 MG/DL (8.8-10.2); CARBON DIOXIDE LEVEL 30 MEQ/L (21-32); CHLORIDE LEVEL 107 MEQ/L (98-107); CREATININE FOR GFR 0.71 MG/DL (0.55-1.30); FREE T4 1.05 NG/DL (0.76-1.46); GLOMERULAR FILTRATION RATE > 60.0 (>39); GLUCOSE, FASTING 113 MG/DL (70-100); POTASSIUM SERUM 4.7 MEQ/L (3.5-5.1); SODIUM LEVEL 142 MEQ/L (136-145); THYROID STIMULATING HORMONE 0.906 uIU/ML (0.358-3.740); TOTAL PROTEIN 6.9 GM/DL (6.4-8.2)
[2022-04-23 14:50] LABS: VITAMIN B12 LEVEL 583 PG/ML (247-911)
[2022-04-25 08:16] LABS: FOLATE 17.2 ng/mL (>3.0)
== END ==
LOC: M SFHCPLAZ 08:03
PROVIDERS: ATTEND Internal Medicine Hematology
DX: Z00.00 Encounter for general adult medical examination without abnormal findings (principal)

== ENCOUNTER 2022-05-22 08:38 | Emergency (ER) | payer MEDICARE, BC ==
[~2022-05-22] VITALS: Ht 157.5 cm; Wt 61.6 kg
[2022-05-22 09:26] LABS: BASO % 0.3 % (0.0-1.0); HEMATOCRIT 49.1 % (36.0-47.0); HEMOGLOBIN 16.8 g/dl (12.0-15.5); LYMPH # 1.1 10^3/uL (1.5-5.0); LYMPH % 9.9 % (24.0-44.0); MEAN CORPUSCULAR HEMOGLOBIN 34.2 pg (27.0-33.0); MEAN CORPUSCULAR HGB CONC 34.2 g/dl (32.0-36.5); MONO # 0.7 10^3/uL (0.0-0.8); MONO % 6.6 % (2.0-8.0); NEUTROPHILS # 9.2 10^3/uL (1.5-8.5); NEUTROPHILS % 82.8 % (36.0-66.0); PLATELET COUNT, AUTOMATED 297 10^3/uL (150-450); RED BLOOD COUNT 4.91 10^6/uL (4.00-5.40); WHITE BLOOD COUNT 11.2 10^3/uL (4.0-10.0)
[2022-05-22 10:09] LABS: ALBUMIN 3.8 GM/DL (3.2-5.2); ALT/SGPT 26 U/L (12-78); BILIRUBIN,DIRECT 0.1 MG/DL (0.0-0.2); BILIRUBIN,TOTAL 0.4 MG/DL (0.2-1.0); BLOOD UREA NITROGEN 29 MG/DL (7-18); CALCIUM LEVEL 9.4 MG/DL (8.8-10.2); CARBON DIOXIDE LEVEL 29 MEQ/L (21-32); CHLORIDE LEVEL 99 MEQ/L (98-107); CK-MB VALUE MASS 1.8 NG/ML (<3.6); CREATININE FOR GFR 0.91 MG/DL (0.55-1.30); GLOMERULAR FILTRATION RATE > 60.0 (>39); GLUCOSE, FASTING 171 MG/DL (70-100); LIPASE 86 U/L (73-393); MB/CK RELATIVE INDEX 2.57 (< OR =4); POTASSIUM SERUM 4.2 MEQ/L (3.5-5.1); SODIUM LEVEL 135 MEQ/L (136-145); TOTAL PROTEIN 7.4 GM/DL (6.4-8.2)
[2022-05-22] MEDS ORDERED: ONDANSETRON 4MG 2ML VIAL IV ONE (10:25)
[2022-05-22] MEDS ORDERED: NS 1,000 ML IV SCH (10:25)
[2022-05-22] MEDS ORDERED: PANTOPRAZOLE 40MG VIAL IV ONE (10:25)
[2022-05-22] MEDS ORDERED: ISOVUE-370 76% 100ML VIAL As Ordered ONE (11:25)
[2022-05-22 13:18] LABS: RSV AMPLIFICATION NEGATIVE (NEGATIVE)
[2022-05-22] MEDS ORDERED: SUCRALFATE SUSP 1GM/10ML UD PO ONE (13:20)
[2022-05-22] MEDS ORDERED: CARA1TAB6 PO (14:52)
[2022-05-22] MEDS ORDERED: PROT1TAB2 PO (14:52)
[2022-05-22 17:30] VITALS: BP 118/58
== END 2022-05-22 17:43 | disposition home or self-care (01) ==
LOC: M ED 08:38
DX: K29.70 Gastritis, unspecified, without bleeding (principal); Z87.442 Personal history of urinary calculi; F17.200 Nicotine dependence, unspecified, uncomplicated; Z88.2 Allergy status to sulfonamides; Z88.1 Allergy status to other antibiotic agents; Z88.8 Allergy status to other drugs, medicaments and biological substances; Z79.899 Other long term (current) drug therapy; Z79.82 Long term (current) use of aspirin
CPT/HCPCS: 71045; 74177; 80048; 80076; 82550; 82553; 83690; 84484; 85025; 87631; 93005; 96374; 96375; 99285; C9113; J2405; Q9967

== ENCOUNTER → 2022-07-22 | Outpatient (REF) | payer MEDICARE, BC ==
[~2022-07-22] MED LIST changes: +CARA1TAB6 PO; +PROT1TAB2 PO
[2022-07-22 17:57] LABS: ALBUMIN 3.9 G/DL (3.2-5.2); BILIRUBIN,DIRECT 0.2 MG/DL (<0.4); BILIRUBIN,TOTAL 0.5 MG/DL (0.3-1.2); CHOLESTEROL RISK RATIO 4.1 (<5); HDL CHOLESTEROL 51.9 MG/DL (>40); LDL CHOLESTEROL 142.5 MG/DL (<100); TOTAL PROTEIN 6.8 G/DL (5.7-8.2)
== END ==
LOC: M SFHCPLAZ 10:03
PROVIDERS: ATTEND Internal Medicine Hematology
DX: E78.00 Pure hypercholesterolemia, unspecified (principal)

== ENCOUNTER → 2022-08-16 | Outpatient (CLI) | payer MEDICARE, BC | LOC: M LABSMTC 11:17 | PROVIDERS: ATTEND Anesthesiology | DX: Z01.812 Encounter for preprocedural laboratory examination (principal); Z11.52 Encounter for screening for COVID-19 ==

== ENCOUNTER 2022-08-19 11:43 | Day surgery (SDC) | payer MEDICARE, BC ==
[~2022-08-19] VITALS: Ht 152.4 cm; Wt 60.1 kg
[~2022-08-19 11:43] MED LIST changes: +NS 1,000 ML IV ONE
[2022-08-19] MEDS ORDERED: LIDOCAINE 2% 100MG/5ML SDV (FOR ANES.) As Ordered ONE (13:11)
[2022-08-19] MEDS ORDERED: propofoL 200 MG/20 ML VIAL As Ordered ONE (13:11)
[2022-08-19] MEDS ORDERED: fentaNYL 100 MCG/2 ML INJECTION As Ordered ONE (13:12)
[2022-08-19 13:55] VITALS: BP 147/72
== END 2022-08-19 14:03 | disposition home or self-care (01) ==
LOC: M OPP 11:43
PROVIDERS: ATTEND Internal Medicine Gastroenterology
DX: K29.70 Gastritis, unspecified, without bleeding (principal); K22.70 Barrett's esophagus without dysplasia; K22.89 Other specified disease of esophagus; Z79.02 Long term (current) use of antithrombotics/antiplatelets; Z79.82 Long term (current) use of aspirin; Z88.1 Allergy status to other antibiotic agents; Z88.2 Allergy status to sulfonamides; Z88.5 Allergy status to narcotic agent; E78.00 Pure hypercholesterolemia, unspecified; I65.02 Occlusion and stenosis of left vertebral artery; Z84.89 Family history of other specified conditions; Z86.73 Personal history of transient ischemic attack (TIA), and cerebral infarction without residual deficits
CPT/HCPCS: 43239; 88305; J3010

== ENCOUNTER → 2022-08-25 | Outpatient (CLI) | payer MEDICARE, BC ==
[~2022-08-25] MED LIST changes: -NS 1,000 ML IV ONE
== END ==
LOC: M WUC 11:11
PROVIDERS: ATTEND Physician Assistant
DX: R10.30 Lower abdominal pain, unspecified (principal); S29.012A Strain of muscle and tendon of back wall of thorax, initial encounter; K59.09 Other constipation

== ENCOUNTER 2022-09-02 16:52 | Emergency (ER) | payer MEDICARE, BC ==
[~2022-09-02] VITALS: Ht 149.9 cm; Wt 56.8 kg
[2022-09-02 19:21] LABS: APPEARANCE, URINE CLEAR (CLEAR); BILIRUBIN, URINE AUTO NEGATIVE (NEGATIVE); BLOOD, URINE BLOOD NEGATIVE (NEGATIVE); COLOR, URINE YELLOW (YELLOW); GLUCOSE, URINE (UA) AUTO NEGATIVE (NEGATIVE); KETONE, URINE AUTO NEGATIVE (NEGATIVE); LEUKOCYTE ESTERASE, URINE AUTO 2+ (NEGATIVE); NITRITE, URINE AUTO NEGATIVE (NEGATIVE); PROTEIN, URINE AUTO NEGATIVE (NEGATIVE); SPECIFIC GRAVITY URINE AUTO 1.011 (1.002-1.035); UROBILINOGEN, URINE AUTO 0.2 mg/dL (0.0-2.0)
[2022-09-02 19:26] LABS: BACTERIA, URINE AUTO NEGATIVE (NEGATIVE); RBC, URINE AUTO 0 /HPF (0-3); SQUAMOUS EPITHELIAL CELL UR AU 0 /HPF (0-6); WBC, URINE AUTO 34 /HPF (0-3)
[2022-09-02 19:28] LABS: BASO # 0.1 10^3/uL (0.0-0.2); BASO % 1.1 % (0.0-1.0); EOS # 0.1 10^3/uL (0.0-0.5); EOS % 1.9 % (0.0-3.0); HEMATOCRIT 42.7 % (36.0-47.0); LYMPH # 2.1 10^3/uL (1.5-5.0); LYMPH % 27.6 % (24.0-44.0); MEAN CORPUSCULAR HEMOGLOBIN 33.4 pg (27.0-33.0); MEAN CORPUSCULAR HGB CONC 32.8 g/dl (32.0-36.5); MEAN CORPUSCULAR VOLUME 101.9 fl (80.0-96.0); MONO # 0.7 10^3/uL (0.0-0.8); MONO % 9.7 % (2.0-8.0); NEUTROPHILS # 4.4 10^3/uL (1.5-8.5); NEUTROPHILS % 58.6 % (36.0-66.0); PLATELET COUNT, AUTOMATED 443 10^3/uL (150-450); RED BLOOD COUNT 4.19 10^6/uL (4.00-5.40); WHITE BLOOD COUNT 7.4 10^3/uL (4.0-10.0)
[2022-09-02 19:40] LABS: BLOOD UREA NITROGEN 18 MG/DL (9-23); CALCIUM LEVEL 9.3 MG/DL (8.3-10.6); CARBON DIOXIDE LEVEL 29 MMOL/L (20-31); CHLORIDE LEVEL 106 MMOL/L (98-107); CREATININE FOR GFR 0.62 MG/DL (0.55-1.30); GLOMERULAR FILTRATION RATE > 60.0 (>39); GLUCOSE, FASTING 108 MG/DL (74-106); POTASSIUM SERUM 4.1 MMOL/L (3.5-5.1); SODIUM LEVEL 141 MMOL/L (136-145)
[2022-09-02] MEDS ORDERED: LEVO1TAB40 PO (20:24)
[2022-09-02 20:27] VITALS: BP 140/68
[2022-09-02] MEDS ORDERED: LevoFLOXacin 750 MG TABLET PO ONE (20:40)
[2022-09-02 21:10] LABS: ALKALINE PHOSPHATASE 106 U/L (46-116); ALT/SGPT 16 U/L (7.0-40); AST/SGOT 21 U/L (<34)
[2022-09-02 21:11] LABS: ALBUMIN 3.2 G/DL (3.2-5.2); BILIRUBIN,DIRECT 0.1 MG/DL (<0.4); BILIRUBIN,TOTAL 0.3 MG/DL (0.3-1.2); TOTAL PROTEIN 6.5 G/DL (5.7-8.2)
== END 2022-09-02 20:59 | disposition home or self-care (01) ==
LOC: M ED 16:52
DX: J18.9 Pneumonia, unspecified organism (principal); F17.200 Nicotine dependence, unspecified, uncomplicated; Z79.899 Other long term (current) drug therapy; Z88.2 Allergy status to sulfonamides; Z88.8 Allergy status to other drugs, medicaments and biological substances

== ENCOUNTER → 2022-09-13 | Outpatient (REF) | payer MEDICARE, BC ==
[~2022-09-13] MED LIST changes: +LEVO1TAB40 PO
== END ==
LOC: M SFHCPLAZ 12:56
PROVIDERS: ATTEND Physician Assistant
DX: R35.0 Frequency of micturition (principal)

== ENCOUNTER → 2022-10-22 | Outpatient (REF) | payer MEDICARE, BC ==
[2022-10-22 12:03] LABS: CHOLESTEROL RISK RATIO 3.77 (<5); HDL CHOLESTEROL 60.9 MG/DL (>40); LDL CHOLESTEROL 150.9 MG/DL (<100); NON-HDL-C 169.1 MG/DL
== END ==
LOC: M SFHCPLAZ 07:21
PROVIDERS: ATTEND Internal Medicine Hematology
DX: E78.00 Pure hypercholesterolemia, unspecified (principal)

== ENCOUNTER → 2022-10-28 | Outpatient (REF) | payer MEDICARE, BC ==
[2022-10-28 11:54] LABS: HEMATOCRIT 47.8 % (36.0-47.0); HEMOGLOBIN 16.1 g/dl (12.0-15.5); MEAN CORPUSCULAR HEMOGLOBIN 34.4 pg (27.0-33.0); MEAN CORPUSCULAR HGB CONC 33.7 g/dl (32.0-36.5); MEAN CORPUSCULAR VOLUME 102.1 fl (80.0-96.0); PLATELET COUNT, AUTOMATED 297 10^3/uL (150-450); RED BLOOD COUNT 4.68 10^6/uL (4.00-5.40); WHITE BLOOD COUNT 6.2 10^3/uL (4.0-10.0)
[2022-10-28 11:55] LABS: ALBUMIN 3.9 G/DL (3.2-5.2); ALKALINE PHOSPHATASE 101 U/L (46-116); ALT/SGPT 16 U/L (7.0-40); AST/SGOT 22 U/L (<34); BILIRUBIN,TOTAL 0.6 MG/DL (0.3-1.2); BLOOD UREA NITROGEN 18 MG/DL (9-23); C REACTIVE PROTEIN QUANTITATIV < 0.40 MG/DL (<1.0); CALCIUM LEVEL 9.6 MG/DL (8.3-10.6); CARBON DIOXIDE LEVEL 31 MMOL/L (20-31); CHLORIDE LEVEL 102 MMOL/L (98-107); CREATININE FOR GFR 0.62 MG/DL (0.55-1.30); GLOMERULAR FILTRATION RATE > 60.0 (>39); GLUCOSE, FASTING 107 MG/DL (74-106); POTASSIUM SERUM 4.1 MMOL/L (3.5-5.1); SODIUM LEVEL 138 MMOL/L (136-145)
[2022-10-28 11:56] LABS: THYROID STIMULATING HORMONE 1.334 uIU/ML (0.55-4.78)
[2022-10-28 11:57] LABS: FREE T4 1.07 NG/DL (0.89-1.76); RHEUMATOID FACTOR QUANT 29.6 IU/ML (<14); VITAMIN B12 LEVEL 537 PG/ML (211-911)
[2022-10-28 12:16] LABS: ERYTHROCYTE SEDIMENTATION RATE 36 mm/hr (0-30)
[2022-10-29 13:08] LABS: ANTINUCLEAR ANTIBODIES DIRECT Negative (Negative)
== END ==
LOC: M SFHCPLAZ 08:05
PROVIDERS: ATTEND Internal Medicine Hematology
DX: R73.01 Impaired fasting glucose (principal); M05.9 Rheumatoid arthritis with rheumatoid factor, unspecified

== ENCOUNTER → 2022-12-17 | Outpatient (CLI) | payer MEDICARE, BC | LOC: M RAD 09:36 | PROVIDERS: ATTEND Internal Medicine Hematology | DX: Z12.2 Encounter for screening for malignant neoplasm of respiratory organs (principal); Z87.891 Personal history of nicotine dependence; R91.8 Other nonspecific abnormal finding of lung field ==

== ENCOUNTER → 2023-02-01 | Day surgery (SDC) | payer MEDICARE, BC ==
[~2023-02-01] VITALS: Ht 149.9 cm; Wt 57.7 kg
[~2023-02-01] MED LIST changes: +ALBU8.5H INH; -HYDR200T3 PO; +HYDR200T46 PO; +LIDOCAINE 2% 100MG/5ML SDV (FOR ANES.) As Ordered ONE; +NS 1,000 ML IV ONE; +ROSU20TA61 PO; +propofoL 200 MG/20 ML VIAL As Ordered ONE
[2023-02-01 09:43] VITALS: TEMP 97.1
[2023-02-01 09:56] VITALS: BP 130/59; O2SAT 99
== END | disposition home or self-care (01) ==
LOC: M OPP 07:37
PROVIDERS: ATTEND Internal Medicine Gastroenterology
DX: Z12.11 Encounter for screening for malignant neoplasm of colon (principal); Z86.010 Personal history of colon polyps; D12.2 Benign neoplasm of ascending colon; K57.30 Diverticulosis of large intestine without perforation or abscess without bleeding; K64.8 Other hemorrhoids; Z79.02 Long term (current) use of antithrombotics/antiplatelets; Z79.1 Long term (current) use of non-steroidal anti-inflammatories (NSAID); Z79.51 Long term (current) use of inhaled steroids; Z88.1 Allergy status to other antibiotic agents; Z88.2 Allergy status to sulfonamides; Z88.5 Allergy status to narcotic agent

== ENCOUNTER → 2023-05-12 | Outpatient (REF) | payer MEDICARE, BC ==
[~2023-05-12] MED LIST changes: -LIDOCAINE 2% 100MG/5ML SDV (FOR ANES.) As Ordered ONE; -NS 1,000 ML IV ONE; -propofoL 200 MG/20 ML VIAL As Ordered ONE
[2023-05-12 13:18] LABS: BASO # 0.1 10^3/uL (0.0-0.2); BASO % 0.8 % (0.0-1.0); EOS # 0.1 10^3/uL (0.0-0.5); EOS % 0.8 % (0.0-3.0); HEMATOCRIT 43.9 % (36.0-47.0); HEMOGLOBIN 14.8 g/dl (12.0-15.5); LYMPH # 2.3 10^3/uL (1.5-5.0); LYMPH % 36.8 % (24.0-44.0); MEAN CORPUSCULAR HEMOGLOBIN 35.2 pg (27.0-33.0); MEAN CORPUSCULAR HGB CONC 33.7 g/dl (32.0-36.5); MEAN CORPUSCULAR VOLUME 104.3 fl (80.0-96.0); MONO # 0.5 10^3/uL (0.0-0.8); MONO % 7.9 % (2.0-8.0); NEUTROPHILS # 3.4 10^3/uL (1.5-8.5); NEUTROPHILS % 53.2 % (36.0-66.0); PLATELET COUNT, AUTOMATED 249 10^3/uL (150-450); RED BLOOD COUNT 4.21 10^6/uL (4.00-5.40); WHITE BLOOD COUNT 6.3 10^3/uL (4.0-10.0)
[2023-05-12 13:32] LABS: HEMOGLOBIN A1c 4.7 % (4.0-6.0)
[2023-05-12 13:48] LABS: ALBUMIN 3.8 G/DL (3.2-5.2); ALKALINE PHOSPHATASE 91 U/L (46-116); ALT/SGPT 18 U/L (7.0-40); AST/SGOT 26 U/L (<34); BILIRUBIN,TOTAL 0.7 MG/DL (0.3-1.2); BLOOD UREA NITROGEN 15 MG/DL (9-23); CARBON DIOXIDE LEVEL 28 MMOL/L (20-31); CHLORIDE LEVEL 105 MMOL/L (98-107); CHOLESTEROL LEVEL 170 MG/DL (<200); CHOLESTEROL RISK RATIO 2.87 (<5); GLOMERULAR FILTRATION RATE > 60.0 (>39); GLUCOSE, FASTING 96 MG/DL (74-106); HDL CHOLESTEROL 59.2 MG/DL (>40); LDL CHOLESTEROL 92.8 MG/DL (<100); NON-HDL-C 110.8 MG/DL; POTASSIUM SERUM 4.3 MMOL/L (3.5-5.1); SODIUM LEVEL 141 MMOL/L (136-145); TOTAL PROTEIN 6.7 G/DL (5.7-8.2); TRIGLYCERIDES LEVEL 90 MG/DL (<150)
== END ==
LOC: M SFHCCLAY 08:41
PROVIDERS: ATTEND Nurse Practitioner Family
DX: R73.01 Impaired fasting glucose (principal); I69.30 Unspecified sequelae of cerebral infarction; M06.9 Rheumatoid arthritis, unspecified; E78.00 Pure hypercholesterolemia, unspecified

== ENCOUNTER → 2023-06-07 | Outpatient (CLI) | payer MEDICARE, BC | LOC: M WHC 10:28 | PROVIDERS: ATTEND Nurse Practitioner Family | DX: Z12.31 Encounter for screening mammogram for malignant neoplasm of breast (principal) ==

== ENCOUNTER → 2023-11-23 | Outpatient (REF) | payer MEDICARE, BC ==
[2023-11-23 12:22] LABS: ALBUMIN 3.9 G/DL (3.2-5.2); ALKALINE PHOSPHATASE 97 U/L (46-116); ALT/SGPT 25 U/L (7.0-40); AST/SGOT 26 U/L (<34); BILIRUBIN,TOTAL 0.7 MG/DL (0.3-1.2); BLOOD UREA NITROGEN 21 MG/DL (9-23); CALCIUM LEVEL 9.2 MG/DL (8.3-10.6); CARBON DIOXIDE LEVEL 29 MMOL/L (20-31); CHLORIDE LEVEL 106 MMOL/L (98-107); CHOLESTEROL LEVEL 159 MG/DL (<200); CHOLESTEROL RISK RATIO 3.01 (<5); CREATININE FOR GFR 0.65 MG/DL (0.55-1.30); GLOMERULAR FILTRATION RATE > 60.0 (>39); GLUCOSE, FASTING 95 MG/DL (74-106); HDL CHOLESTEROL 52.7 MG/DL (>40); LDL CHOLESTEROL 86.3 MG/DL (<100); NON-HDL-C 106.3 MG/DL; POTASSIUM SERUM 4.1 MMOL/L (3.5-5.1); SODIUM LEVEL 140 MMOL/L (136-145); TOTAL PROTEIN 6.8 G/DL (5.7-8.2); TRIGLYCERIDES LEVEL 100 MG/DL (<150)
== END ==
LOC: M SFHCCLAY 07:15
PROVIDERS: ATTEND Nurse Practitioner Family
DX: I69.30 Unspecified sequelae of cerebral infarction (principal); M05.9 Rheumatoid arthritis with rheumatoid factor, unspecified; E78.00 Pure hypercholesterolemia, unspecified; R73.01 Impaired fasting glucose; M06.9 Rheumatoid arthritis, unspecified

== ENCOUNTER → 2024-04-03 | Outpatient (CLI) | payer MEDICARE, BC | LOC: M RAD 10:16 | PROVIDERS: ATTEND Nurse Practitioner Family | DX: Z12.2 Encounter for screening for malignant neoplasm of respiratory organs (principal); F17.210 Nicotine dependence, cigarettes, uncomplicated ==

== ENCOUNTER → 2024-04-09 | Outpatient (REF) | payer MEDICARE, BC ==
[2024-04-09 18:47] LABS: BASO # 0.1 10^3/uL (0.0-0.2); BASO % 0.9 % (0.0-1.0); EOS # 0.1 10^3/uL (0.0-0.5); EOS % 2.3 % (0.0-3.0); HEMATOCRIT 51.2 % (36.0-47.0); HEMOGLOBIN 17.6 g/dl (12.0-15.5); LYMPH % 35.9 % (24.0-44.0); MEAN CORPUSCULAR HEMOGLOBIN 35.5 pg (27.0-33.0); MEAN CORPUSCULAR HGB CONC 34.4 g/dl (32.0-36.5); MEAN CORPUSCULAR VOLUME 103.2 fl (80.0-96.0); MONO # 0.7 10^3/uL (0.0-0.8); MONO % 11.9 % (2.0-8.0); NEUTROPHILS # 2.7 10^3/uL (1.5-8.5); NEUTROPHILS % 48.6 % (36.0-66.0); PLATELET COUNT, AUTOMATED 249 10^3/uL (150-450); RED BLOOD COUNT 4.96 10^6/uL (4.00-5.40); WHITE BLOOD COUNT 5.6 10^3/uL (4.0-10.0)
[2024-04-09 18:55] LABS: ERYTHROCYTE SEDIMENTATION RATE 27 mm/hr (0-30)
[2024-04-09 19:02] LABS: C REACTIVE PROTEIN QUANTITATIV < 0.40 MG/DL (<1.0)
[2024-04-09 19:04] LABS: ALBUMIN 4.1 G/DL (3.2-5.2); ALKALINE PHOSPHATASE 113 U/L (46-116); ALT/SGPT 20 U/L (7.0-40); AST/SGOT 18 U/L (<34); BILIRUBIN,TOTAL 0.4 MG/DL (0.3-1.2); BLOOD UREA NITROGEN 19 MG/DL (9-23); CALCIUM LEVEL 9.5 MG/DL (8.3-10.6); CARBON DIOXIDE LEVEL 29 MMOL/L (20-31); CHLORIDE LEVEL 107 MMOL/L (98-107); CREATININE FOR GFR 0.69 MG/DL (0.55-1.30); GLOMERULAR FILTRATION RATE > 60.0 (>39); GLUCOSE, FASTING 104 MG/DL (74-106); POTASSIUM SERUM 4.3 MMOL/L (3.5-5.1); SODIUM LEVEL 140 MMOL/L (136-145); TOTAL PROTEIN 7.5 G/DL (5.7-8.2)
[2024-04-09 19:06] LABS: THYROID STIMULATING HORMONE 1.675 uIU/ML (0.55-4.78)
[2024-04-12 13:17] LABS: ANA SCREEN, IFA NEGATIVE (NEGATIVE)
== END ==
LOC: M SFHCCLAY 13:49
PROVIDERS: ATTEND Physician Assistant
DX: R21 Rash and other nonspecific skin eruption (principal); Z79.899 Other long term (current) drug therapy

== ENCOUNTER → 2024-09-20 | Outpatient (CLI) | payer MEDICARE, BC ==
[~2024-09-20] MED LIST changes: -ROSU20TA61 PO; +ROSU20TA86 PO
== END ==
LOC: M RAD 09:04
PROVIDERS: ATTEND Physician Assistant Medical
DX: R10.10 Upper abdominal pain, unspecified (principal); R11.0 Nausea; D18.03 Hemangioma of intra-abdominal structures; K76.89 Other specified diseases of liver

== ENCOUNTER 2025-02-20 07:12 | Emergency (ER) | payer MEDICARE, BC ==
[~2025-02-20] VITALS: Ht 149.9 cm; Wt 52.5 kg
[2025-02-20 08:20] LABS: KETONE, URINE AUTO RFX NEGATIVE (NEGATIVE); LEUKOCYTE ESTERASE UR AUTO RFX NEGATIVE (NEGATIVE); NITRITE, URINE AUTO RFX NEGATIVE (NEGATIVE); RBC, URINE AUTO RFX 14 /HPF (0-3); SQUAM EPITHELIAL CELL UR AURFX 0 /HPF (0-6); WBC, URINE AUTO RFX 0 /HPF (0-3)
[2025-02-20 08:33] LABS: BASO # 0.0 10^3/uL (0.0-0.2); BASO % 0.4 % (0.0-1.0); EOS # 0.0 10^3/uL (0.0-0.5); EOS % 0.2 % (0.0-3.0); LYMPH # 1.1 10^3/uL (1.5-5.0); LYMPH % 13.2 % (24.0-44.0); MONO # 0.8 10^3/uL (0.0-0.8); MONO % 9.3 % (2.0-8.0); NEUTROPHILS # 6.2 10^3/uL (1.5-8.5); NEUTROPHILS % 76.4 % (36.0-66.0); PLATELET COUNT, AUTOMATED 245 10^3/uL (150-450)
[2025-02-20 08:57] LABS: CALCIUM LEVEL 9.1 MG/DL (8.3-10.6); CARBON DIOXIDE LEVEL 28.0 MMOL/L (20-31); CHLORIDE LEVEL 104.0 MMOL/L (98-107); CREATININE FOR GFR 1.0 MG/DL (0.55-1.30); GLOMERULAR FILTRATION RATE 58.0 (>39); POTASSIUM SERUM 4.3 MMOL/L (3.5-5.1); SODIUM LEVEL 142.0 MMOL/L (136-145)
[2025-02-20] MEDS ORDERED: TAMS-18 PO (10:02)
[2025-02-20 10:15] VITALS: BP 169/70; TEMP 98.6; O2SAT 96
== END 2025-02-20 10:19 | disposition home or self-care (01) ==
LOC: M ED 07:12
DX: N13.2 Hydronephrosis with renal and ureteral calculous obstruction (principal); M48.00 Spinal stenosis, site unspecified; M19.90 Unspecified osteoarthritis, unspecified site; Z87.442 Personal history of urinary calculi; F17.200 Nicotine dependence, unspecified, uncomplicated; Z79.899 Other long term (current) drug therapy; Z88.0 Allergy status to penicillin; Z88.2 Allergy status to sulfonamides; Z88.8 Allergy status to other drugs, medicaments and biological substances

== ENCOUNTER → 2025-03-06 | Outpatient (REF) | payer MEDICARE, BC ==
[~2025-03-06] MED LIST changes: +TAMS-18 PO
[2025-03-06 15:50] LABS: APPEARANCE, URINE CLEAR (CLEAR); BACTERIA, URINE AUTO NEGATIVE (NEGATIVE); BILIRUBIN, URINE AUTO NEGATIVE (NEGATIVE); BLOOD, URINE BLOOD NEGATIVE (NEGATIVE); GLUCOSE, URINE (UA) AUTO NEGATIVE (NEGATIVE); KETONE, URINE AUTO NEGATIVE (NEGATIVE); LEUKOCYTE ESTERASE, URINE AUTO NEGATIVE (NEGATIVE); MUCUS, URINE SMALL (NEGATIVE); NITRITE, URINE AUTO NEGATIVE (NEGATIVE); PROTEIN, URINE AUTO NEGATIVE (NEGATIVE); RBC, URINE AUTO 2 /HPF (0-3); SPECIFIC GRAVITY URINE AUTO 1.013 (1.002-1.035); SQUAMOUS EPITHELIAL CELL UR AU 1 /HPF (0-6); UROBILINOGEN, URINE AUTO 0.2 mg/dL (0.0-2.0); WBC, URINE AUTO 3 /HPF (0-3)
== END ==
LOC: M SMT 15:23
PROVIDERS: ATTEND Nurse Practitioner Family
DX: N20.0 Calculus of kidney (principal)

== ENCOUNTER 2025-03-12 15:49 | Emergency (ER) | payer OTHER, MEDICARE, BC ==
[~2025-03-12] VITALS: Ht 149.9 cm; Wt 49.2 kg
[2025-03-12 20:12] VITALS: BP 146/76; TEMP 98.2; O2SAT 96
== END 2025-03-12 20:13 | disposition home or self-care (01) ==
LOC: M ED 15:49 → EDBD 15:49 → M ED 20:13
DX: S06.0XAA Concussion with loss of consciousness status unknown, initial encounter (principal); S00.93XA Contusion of unspecified part of head, initial encounter; S20.20XA Contusion of thorax, unspecified, initial encounter; V43.53XA Car driver injured in collision with pick-up truck in traffic accident, initial encounter; Y92.9 Unspecified place or not applicable; Y93.9 Activity, unspecified; Y99.9 Unspecified external cause status; E78.00 Pure hypercholesterolemia, unspecified; Z86.73 Personal history of transient ischemic attack (TIA), and cerebral infarction without residual deficits; Z87.442 Personal history of urinary calculi; F17.200 Nicotine dependence, unspecified, uncomplicated; Z79.899 Other long term (current) drug therapy; Z88.2 Allergy status to sulfonamides; Z88.8 Allergy status to other drugs, medicaments and biological substances; Z88.0 Allergy status to penicillin

== ENCOUNTER → 2025-06-19 | Outpatient (REF) | payer MEDICARE, BC ==
[2025-06-19 13:15] LABS: ALT/SGPT 20 U/L (7.0-40); AST/SGOT 28 U/L (<34); CALCIUM LEVEL 9.5 MG/DL (8.3-10.6); CARBON DIOXIDE LEVEL 32 MMOL/L (20-31); CHLORIDE LEVEL 101 MMOL/L (98-107); CHOLESTEROL LEVEL 159 MG/DL (<200); CHOLESTEROL RISK RATIO 2.38 (<5); CREATININE FOR GFR 0.64 MG/DL (0.55-1.30); GLOMERULAR FILTRATION RATE > 90.0 (>39); LDL CHOLESTEROL 74.6 MG/DL (<100); NON-HDL-C 92.2 MG/DL; POTASSIUM SERUM 4.1 MMOL/L (3.5-5.1); SODIUM LEVEL 143 MMOL/L (136-145); TRIGLYCERIDES LEVEL 88 MG/DL (<150)
[2025-06-19 14:36] LABS: ESTIMATED AVERAGE GLUCOSE 108.0 MG/DL (60-110)
== END ==
LOC: M SFHCCLAY 09:20
PROVIDERS: ATTEND Nurse Practitioner Family
DX: Z00.00 Encounter for general adult medical examination without abnormal findings (principal); F17.210 Nicotine dependence, cigarettes, uncomplicated; I69.30 Unspecified sequelae of cerebral infarction; M05.9 Rheumatoid arthritis with rheumatoid factor, unspecified; E78.00 Pure hypercholesterolemia, unspecified; R73.01 Impaired fasting glucose

== ENCOUNTER → 2025-06-21 | Outpatient (REF) | payer MEDICARE, BC ==
[2025-06-21 13:21] LABS: FREE T4 1.18 NG/DL (0.89-1.76)
[2025-06-21 13:27] LABS: BASO # 0.1 10^3/uL (0.0-0.2); BASO % 1.0 % (0.0-1.0); EOS # 0.1 10^3/uL (0.0-0.5); EOS % 1.3 % (0.0-3.0); LYMPH # 2.5 10^3/uL (1.5-5.0); LYMPH % 40.7 % (24.0-44.0); MONO # 0.5 10^3/uL (0.0-0.8); MONO % 7.9 % (2.0-8.0); NEUTROPHILS # 3.0 10^3/uL (1.5-8.5); NEUTROPHILS % 48.8 % (36.0-66.0); PLATELET COUNT, AUTOMATED 275 10^3/uL (150-450)
== END ==
LOC: M SFHCCLAY 08:33
PROVIDERS: ATTEND Nurse Practitioner Family
DX: R63.4 Abnormal weight loss (principal)